=== PATIENT | male | born 2000 | race African-American/Black ===

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

== ENCOUNTER 2020-02-08 13:33 | Emergency (ER) | payer OTHER ==
--- NOTE | 2020-02-08 13:43 | PDOC ---
Rapid Medical Evaluation Time Seen by Provider: 02/08/20 13:40 Medical Evaluation: Allergies Allergy/AdvReac Type Severity Reaction Status Date / Time No Known Allergies Allergy Verified 08/05/19 03:58 02/08/20 13:40 I have preformed a brief in person evaluation of the patient HPI 19 year old male pmhx asthma complaining of rectal pain x 1 week with associated constipation. Pain is constant 6/10 No blood in stool PE: Deferred A/P: Likely anal fissure vs hemorrhoid Pt to precede to ED for further management and care
[2020-02-08 13:56] VITALS: BP 128/74; PULSE 98; TEMP 98.6; BMI 19.8
--- NOTE | 2020-02-08 14:20 | PDOC ---
History of Present Illness - General Chief Complaint: Pain Stated Complaint: BOWEL MOVEMENT Time Seen by Provider: 02/08/20 13:40 History Source: Patient Exam Limitations: Clinical Condition - History of Present Illness Initial Comments: 02/08/20 14:31 Patient with no significant past medical history present with complaint of one- week history of constipation and bump in the rectum when taking bowel movement which is painful. Patient report he feels when he goes to the bathroom he does not completely empty out. Last bowel movement was this morning which was small. Denies abdominal pain, nausea, vomiting, fever, chills. Denies rectal bleeds. Patient has not taken anything for symptoms. Denies any other symptoms Is this a multiple visit Asthma Patient?: No Timing/Duration: 1 week Past History - Medical History Allergies/Adverse Reactions: Allergies Allergy/AdvReac Type Severity Reaction Status Date / Time No Known Allergies Allergy Verified 08/05/19 03:58 Home Medications: Ambulatory Orders Docusate Sodium [Colace -] 100 mg PO BID #14 capsule 02/08/20 Hydrocortisone Acetate [Anusol Hc Suppository -] 25 mg RC BID PRN #28 supp.rect 02/08/20 Polyethylene Glycol 3350 [Miralax (For Bowel Prep) -] 17 gm PO DAILY #1 bottle 02/08/20 Asthma: Yes COPD: No - Immunization History Immunization Up to Date: Yes - Psycho-Social/Smoking History Smoking Status: No Smoking History: Never smoked Have you smoked in the past 12 months: No Number of Cigarettes Smoked Daily: 0 - Substance Abuse Hx (Audit-C & DAST Scrn) How often the patient has a drink containing alcohol: Never Score: In Men: 4 or > Positive; In Women: 3 or > Positive: 0 Screen Result (Pos requires Nsg. Audit-10AR): Negative In the last yr the pt used illegal drug/Rx for NonMed reason: No Score: Yes response is considered Positive: 0 Screen Result (Positive result requires Nsg. DAST-10): Negative Review of Systems - Review of Systems Able to Perform ROS?: Yes Is the patient limited Uzbek proficient: No Constitutional: No: Chills, Fever, Malaise HEENTM: No: Symptoms Reported, See HPI, Eye Pain, Blurred Vision, Tearing, Rece nt change in vision, Double Vision, Cataracts, Ear Pain, Ocular Prothesis, Ear Discharge, Nose Pain, Nose Congestion, Tinnitus, Nose Bleeding, Hearing Loss, Throat Pain, Throat Swelling, Mouth Pain, Dental Problems, Difficulty Swallowing, Mouth Swelling, Other Respiratory: No: Symptoms reported, See HPI, Cough, Orthopnea, Shortness of Breath, SOB with Exertion, SOB at Rest, Stridor, Wheezing, Productive cough, Hemoptysis, Other Cardiac (ROS): No: Symptoms Reported, See HPI, Chest Pain, Edema, Irregular Heart Rate, Lightheadedness, Palpitations, Syncope, Chest Tightness, Other ABD/GI: Yes: Abd. Pain w/ defecation, Constipated, Rectal Bleeding (hemorrhoid). No: Symptoms Reported, Abdominal Distended, Diarrhea, Nausea, Poor Appetite, Poor Fluid Intake, Vomiting, Indigestion, Abdominal cramping, Tarry Stools : No: Symptoms Reported All Other Systems: Reviewed and Negative *Physical Exam - Vital Signs Last Vital Signs Temp Pulse Resp BP Pulse Ox 98.6 F 98 H 19 128/74 97 02/08/20 13:40 02/08/20 13:40 02/08/20 13:40 02/08/20 13:40 02/08/20 13:40 - Physical Exam General Appearance: Yes: Nourished, Appropriately Dressed. No: Apparent Distress HEENT: positive: Normal ENT Inspection Respiratory/Chest: positive: Lungs Clear, Normal Breath Sounds. negative: Respiratory Distress, Accessory Muscle Use Cardiovascular: positive: Regular Rhythm, Regular Rate Gastrointestinal/Abdominal: positive: Flat, Soft, Decreased BS (mildly decrease bowel sounds diffusely). negative: Tender, Organomegaly, Guarding, Rebound, Tenderness Male Genitalia: positive: normal genitalia Rectal Exam: positive: heme negative stool, normal rectal tone, hemorrhoids (small 1cm internal non-thrombosed hemorrhoid) Musculoskeletal: positive: Normal Inspection Extremity: positive: Normal Capillary Refill, Normal Inspection, Normal Range of Motion Integumentary: positive: Normal Color Neurologic: positive: Fully Oriented, Alert, Normal Mood/Affect, Normal Response Medical Decision Making - Medical Decision Making 02/08/20 14:32 Patient with no significant past medical history present with complaint of one- week history of constipation and bump in the rectum when taking bowel movement which is painful. Patient report he feels when he goes to the bathroom he does not completely empty out. Last bowel movement was this morning which was small. Denies abdominal pain, nausea, vomiting, fever, chills. Denies rectal bleeds. Patient has not taken anything for symptoms. Denies any other symptoms Exam significant for 1 cm internal hemorrhoid. No rectal bleeding on rectal exam. No abdominal tenderness. Patient in no acute distress. Mildly decreased bowel sounds diffusely. No guarding or rebound. Patient symptoms likely constipation with hemorrhoids. Patient stable for discharge on Colace twice daily for constipation MiraLAX for constipation. Topical hydrocortisone Anusol prescribed for hemorrhoid rectal pain. Patient stable for discharge with GI follow-up. Patient advised to increase fiber intake to help decrease constipation and increase fluid intake. Patient stable for discharge Discharge - Discharge Information Problems reviewed: Yes Clinical Impression/Diagnosis: Constipation Qualifiers: Constipation type: unspecified constipation type Qualified Code(s): K59.00 - Constipation, unspecified Hemorrhoid Qualifiers: Hemorrhoid type: unspecified Qualified Code(s): K64.9 - Unspecified hemorrhoids Condition: Stable Disposition: HOME - Admission No - Additional Discharge Information Prescriptions: Hydrocortisone Acetate [Anusol Hc Suppository -] 25 mg RC BID PRN #28 supp.rect PRN Reason: hemorrhoid Docusate Sodium [Colace -] 100 mg PO BID #14 capsule Polyethylene Glycol 3350 [Miralax (For Bowel Prep) -] 17 gm PO DAILY #1 bottle - Follow up/Referral Referrals: Austin Smith MD [Staff Physician] - - Patient Discharge Instructions Patient Printed Discharge Instructions: Increased Dietary Fiber May Improve Constipation Conditions With Pelvic Sundar, DI for Constipation Additional Instructions: Your symptoms likely from constipation causing hemorrhoids. Take prescribed medication as prescribed for constipation and hemorrhoids. Follow-up with your GI doctor as soon as possible if symptoms persist for more than 5 days - Post Discharge Activity Work/Back to School Note: Back to Work
[2020-02-08] MEDS ORDERED: LACTULOSE 20 GM/30 ML UDC (FOR ORAL USE ONLY) PO ONE (14:21)
[2020-02-08] MEDS ORDERED: LACTULOSE 20 GM/30 ML UDC (FOR ORAL USE ONLY) ONE (14:23)
== END 2020-02-08 14:24 | disposition home or self-care (01) ==
LOC: JER 13:33
DX: K59.00 Constipation, unspecified (principal); K64.9 Unspecified hemorrhoids
CPT/HCPCS: 99283-25

== ENCOUNTER 2020-08-13 15:21 | Emergency (ER) | payer OTHER ==
[2020-08-13 15:36] VITALS: BP 133/74; PULSE 90; BMI 27.0
[2020-08-13] MEDS ORDERED: KETOROLAC TROMETHAMINE 30 MG/1 ML VIAL IM ONE (16:34)
[2020-08-13] MEDS ORDERED: KETOROLAC TROMETHAMINE 30 MG/1 ML VIAL ONE (16:59)
[2020-08-13 17:26] LABS: PH,URINE 7.5 (5.0-8.0); URINE APPEARANCE CLEAR; URINE BILIRUBIN NEGATIVE (NEGATIVE); URINE COLOR YELLOW; URINE GLUCOSE (UA) NEGATIVE (NEGATIVE); URINE KETONE NEGATIVE (NEGATIVE); URINE LEUK ESTERASE NEGATIVE (NEGATIVE); URINE NITRITE NEGATIVE (NEGATIVE); URINE PROTEIN NEGATIVE (NEGATIVE)
== END 2020-08-13 17:12 | disposition home or self-care (01) ==
LOC: JERFT 15:21
PROC: 3E0233Z Introduction of Anti-inflammatory into Muscle, Percutaneous Approach (ICD-10-PCS; principal; 2020-08-13)
DX: M25.511 Pain in right shoulder (principal)
CPT/HCPCS: 36415; 73030-TC-RT-FY; 81003; 87086; 87491; 87591; 99284-25

== ENCOUNTER 2021-03-10 16:55 | Emergency (ER) | payer OTHER ==
[2021-03-10 17:33] VITALS: BP 117/72; PULSE 91; TEMP 98.1; BMI 26.4
[2021-03-10] MEDS ORDERED: KETOROLAC TROMETHAMINE 15 MG/ML VIAL IM ONE (18:24)
[2021-03-10] MEDS ORDERED: KETOROLAC TROMETHAMINE 15 MG/ML VIAL ONE (18:51)
== END 2021-03-10 19:00 | disposition home or self-care (01) ==
LOC: JERFT 16:55 → JER 16:55 → JERFT 19:00
PROC: 3E0233Z Introduction of Anti-inflammatory into Muscle, Percutaneous Approach (ICD-10-PCS; principal; 2021-03-10)
DX: R07.0 Pain in throat (principal)
CPT/HCPCS: 87880; 96372; 99283-25

== ENCOUNTER 2021-06-17 10:25 | Emergency (ER) | payer OTHER ==
[2021-06-17 10:48] VITALS: BP 118/76; PULSE 85; TEMP 98.1; BMI 27.4
[2021-06-17] MEDS ORDERED: METHOCARBAMOL 500 MG TABLET PO ONE (11:39)
[2021-06-17] MEDS ORDERED: KETOROLAC TROMETHAMINE 30 MG/1 ML VIAL IM ONE (11:39)
[2021-06-17] MEDS ORDERED: METHOCARBAMOL 500 MG TABLET ONE (11:42)
[2021-06-17] MEDS ORDERED: KETOROLAC TROMETHAMINE 30 MG/1 ML VIAL ONE (11:42)
== END 2021-06-17 12:10 | disposition home or self-care (01) ==
LOC: JERFT 10:25
PROC: 3E0233Z Introduction of Anti-inflammatory into Muscle, Percutaneous Approach (ICD-10-PCS; principal; 2021-06-17)
DX: S13.4XXA Sprain of ligaments of cervical spine, initial encounter (principal); S33.5XXA Sprain of ligaments of lumbar spine, initial encounter; V49.50XA Passenger injured in collision with unspecified motor vehicles in traffic accident, initial encounter
CPT/HCPCS: 72050-TC-FY; 72100-TC-FY; 99284-25

== ENCOUNTER 2021-10-08 19:36 | Emergency (ER) | payer OTHER ==
[2021-10-08 19:50] VITALS: BP 112/70; PULSE 78; TEMP 98.7; BMI 28.8
== END 2021-10-08 21:50 | disposition home or self-care (01) ==
LOC: JER 19:36
DX: J02.9 Acute pharyngitis, unspecified (principal)
CPT/HCPCS: 71046-TC-FY; 87651; 99284-25

== ENCOUNTER 2021-12-16 10:08 | Emergency (ER) | payer OTHER ==
[2021-12-16 10:23] VITALS: BP 124/75; PULSE 81; TEMP 98; BMI 26.4
[2021-12-16] MEDS ORDERED: IBUPROFEN 600 MG TABLET (FP) PO ONE ×2 (11:13)
== END 2021-12-16 11:37 | disposition home or self-care (01) ==
LOC: JERFT 10:08
DX: M79.671 Pain in right foot (principal)
CPT/HCPCS: 73630-TC-RT-FY; 99283-25

== ENCOUNTER 2022-01-26 18:07 | Emergency (ER) | payer OTHER ==
[2022-01-26 18:26] VITALS: BP 129/72; PULSE 86; TEMP 98.8; BMI 27.4
== END 2022-01-26 19:37 | disposition home or self-care (01) ==
LOC: JER 18:07
DX: R51.9 Headache, unspecified (principal); J02.9 Acute pharyngitis, unspecified; R09.81 Nasal congestion
CPT/HCPCS: 0241U-QW; 99283-25

== ENCOUNTER 2022-02-21 19:48 | Emergency (ER) | payer OTHER ==
[2022-02-21 19:57] VITALS: BP 127/77; PULSE 57; RESP 19; TEMP 98.6; BMI 27.4
[2022-02-21] MEDS ORDERED: diazePAM 2 MG TABLET PO ONE (20:33)
[2022-02-21] MEDS ORDERED: KETOROLAC TROMETHAMINE 30 MG/1 ML VIAL IM ONE (20:33)
[2022-02-21] MEDS ORDERED: KETOROLAC TROMETHAMINE 30 MG/1 ML VIAL ONE (20:48)
[2022-02-21] MEDS ORDERED: diazePAM 2 MG TABLET ONE (20:48)
== END 2022-02-21 21:25 | disposition home or self-care (01) ==
LOC: JERFT 19:48
PROC: 3E0233Z Introduction of Anti-inflammatory into Muscle, Percutaneous Approach (ICD-10-PCS; principal; 2022-02-21)
DX: M54.2 Cervicalgia (principal)
CPT/HCPCS: 72050-TC-FY; 99284-25

== ENCOUNTER 2022-03-06 18:41 | Emergency (ER) | payer OTHER ==
[2022-03-06 18:47] VITALS: BP 128/70; PULSE 65; RESP 18; TEMP 97.8; BMI 26.4
[2022-03-06] MEDS ORDERED: LIDOCAINE 5% TOPICAL PATCH TP ONE (20:54)
[2022-03-06] MEDS ORDERED: diazePAM 5 MG TABLET PO ONE (20:54)
[2022-03-06] MEDS ORDERED: KETOROLAC TROMETHAMINE 30 MG/1 ML VIAL IM ONE (20:54)
[2022-03-06] MEDS ORDERED: LIDOCAINE 5% TOPICAL PATCH ONE (21:37)
[2022-03-06] MEDS ORDERED: diazePAM 5 MG TABLET ONE (21:37)
[2022-03-06] MEDS ORDERED: KETOROLAC TROMETHAMINE 30 MG/1 ML VIAL ONE (21:37)
[2022-03-06] MEDS ORDERED: oxyCODONE HCL 5 MG TABLET PO ONE (22:48)
[2022-03-06] MEDS ORDERED: oxyCODONE HCL 5 MG TABLET ONE (23:30)
== END 2022-03-07 00:26 | disposition home or self-care (01) ==
LOC: JER 18:41
PROC: 3E023GC Introduction of Other Therapeutic Substance into Muscle, Percutaneous Approach (ICD-10-PCS; principal; 2022-03-06)
DX: M54.2 Cervicalgia (principal)
CPT/HCPCS: 72125-TC; 99284-25

== ENCOUNTER 2022-04-18 16:27 | Emergency (ER) | payer OTHER ==
[2022-04-18 16:50] VITALS: BP 143/83; PULSE 89; RESP 18; TEMP 98; BMI 27.4
[2022-04-18] MEDS ORDERED: METHOCARBAMOL 500 MG TABLET PO ONE (17:12)
[2022-04-18] MEDS ORDERED: METHOCARBAMOL 500 MG TABLET ONE (17:15)
[2022-04-18] MEDS ORDERED: oxyCODONE HCL 5 MG TABLET PO ONE (17:49)
[2022-04-18] MEDS ORDERED: oxyCODONE HCL 5 MG TABLET ONE (17:54)
== END 2022-04-18 17:45 | disposition home or self-care (01) ==
LOC: JER 16:27 → JERFT 16:27
DX: S16.1XXA Strain of muscle, fascia and tendon at neck level, initial encounter (principal); X50.0XXA Overexertion from strenuous movement or load, initial encounter
CPT/HCPCS: 99283-25

== ENCOUNTER 2023-01-10 01:51 | Emergency (ER) | payer OTHER ==
[2023-01-10 02:02] VITALS: BP 155/75; PULSE 84; RESP 18; TEMP 98.1; BMI 27.4
[2023-01-10] MEDS ORDERED: ACETAMINOPHEN 500 MG TABLET (FP) PO ONE (03:40)
[2023-01-10] MEDS ORDERED: LIDOCAINE 5% TOPICAL PATCH TP ONE (03:40)
[2023-01-10] MEDS ORDERED: KETOROLAC TROMETHAMINE 30 MG/1 ML VIAL IM ONE (03:40)
[2023-01-10] MEDS ORDERED: ACETAMINOPHEN 325 MG TABLET (FP) ONE (03:59)
[2023-01-10] MEDS ORDERED: LIDOCAINE 5% TOPICAL PATCH ONE (04:00)
[2023-01-10] MEDS ORDERED: KETOROLAC TROMETHAMINE 30 MG/1 ML VIAL ONE (04:01)
[2023-01-10] MEDS ORDERED: METHOCARBAMOL 750 MG TAB PO ONE (05:09)
[2023-01-10] MEDS ORDERED: METHOCARBAMOL 500 MG TABLET ONE (05:11)
[2023-01-10] MEDS ORDERED: METHOCARBAMOL 500 MG TABLET PO ONE (05:12)
[2023-01-10] MEDS ORDERED: LIDOCAINE PATCH REMOVAL MC ONE (16:00)
== END 2023-01-10 05:35 | disposition home or self-care (01) ==
LOC: JER 01:51
PROC: 3E0233Z Introduction of Anti-inflammatory into Muscle, Percutaneous Approach (ICD-10-PCS; principal; 2023-01-10)
DX: M62.830 Muscle spasm of back (principal); M54.50 Low back pain, unspecified
CPT/HCPCS: 96372; 99284-25

== ENCOUNTER 2023-06-04 23:07 | Emergency (ER) | payer OTHER ==
[2023-06-04 23:12] VITALS: BP 123/70; PULSE 66; RESP 20; TEMP 98.3; BMI 27.4
[2023-06-05] MEDS ORDERED: IBUPROFEN 600 MG TABLET (FP) PO ONE ×2 (00:09→00:17)
[2023-06-05] MEDS ORDERED: LIDOCAINE 5% TOPICAL PATCH TP ONE (01:07)
[2023-06-05] MEDS ORDERED: ACETAMINOPHEN 500 MG TABLET (FP) PO ONE (01:07)
[2023-06-05] MEDS ORDERED: ACETAMINOPHEN 500 MG TABLET (FP) ONE (01:10)
[2023-06-05] MEDS ORDERED: LIDOCAINE 4% PATCH TP ONE (01:11)
[2023-06-05] MEDS ORDERED: diazePAM 5 MG TABLET PO ONE (02:02)
[2023-06-05] MEDS ORDERED: diazePAM 5 MG TABLET ONE (02:04)
[2023-06-05] MEDS ORDERED: LIDOCAINE PATCH REMOVAL MC ONE (14:00)
== END 2023-06-05 01:54 | disposition home or self-care (01) ==
LOC: JER 23:07
DX: M25.511 Pain in right shoulder (principal); M75.101 Unspecified rotator cuff tear or rupture of right shoulder, not specified as traumatic
CPT/HCPCS: 73030-TC-RT-FY; 99283-25

== ENCOUNTER 2023-06-14 22:33 | Emergency (ER) | payer OTHER ==
[2023-06-14 22:55] VITALS: BP 138/67; PULSE 74; RESP 18; TEMP 97.8; BMI 27.4
[2023-06-14] MEDS ORDERED: predniSONE 20 MG TABLET (UD) PO ONE (23:59)
[2023-06-14] MEDS ORDERED: LIDOCAINE 4% PATCH TP ONE (23:59)
[2023-06-15] MEDS ORDERED: predniSONE 20 MG TABLET (UD) ONE (00:03)
[2023-06-15] MEDS ORDERED: LIDOCAINE 4% PATCH TP ONE (00:06)
[2023-06-15] MEDS ORDERED: LIDOCAINE PATCH REMOVAL MC ONE (12:00)
[2023-06-15] MEDS ORDERED: LIDOCAINE PATCH REMOVAL MC SCH (22:00)
== END 2023-06-15 00:10 | disposition home or self-care (01) ==
LOC: JER 22:33 → JERFT 22:33
DX: M25.511 Pain in right shoulder (principal)
CPT/HCPCS: 99283-25

== ENCOUNTER 2023-08-21 00:53 | Emergency (ER) | payer OTHER ==
[2023-08-21 01:02] VITALS: BP 119/78; PULSE 76; RESP 18; TEMP 98.5; BMI 27.4
[2023-08-21] MEDS ORDERED: KETOROLAC TROMETHAMINE 30 MG/1 ML VIAL ONE (01:56)
[2023-08-21] MEDS ORDERED: LIDOCAINE 4% PATCH TP ONE (01:56)
[2023-08-21] MEDS: LIDOCAINE 5% TOPICAL PATCH TP ONE (02:09)
[2023-08-21] MEDS: KETOROLAC TROMETHAMINE 30 MG/1 ML VIAL IM ONE (02:09)
[2023-08-21] MEDS ORDERED: LIDOCAINE PATCH REMOVAL MC SCH (22:00)
== END 2023-08-21 04:16 | disposition home or self-care (01) ==
LOC: JER 00:53
PROC: 3E0233Z Introduction of Anti-inflammatory into Muscle, Percutaneous Approach (ICD-10-PCS; principal; 2023-08-21)
DX: M25.562 Pain in left knee (principal); R26.2 Difficulty in walking, not elsewhere classified
CPT/HCPCS: 73562-TC-LT-FY; 99284-25

== ENCOUNTER 2023-12-03 21:20 | Emergency (ER) | payer OTHER ==
[2023-12-03 21:31] VITALS: BP 118/66; PULSE 84; RESP 18; TEMP 98.5; BMI 27.4
[2023-12-03] MEDS ORDERED: KETOROLAC TROMETHAMINE 30 MG/1 ML VIAL ONE (22:05)
[2023-12-03] MEDS ORDERED: LIDOCAINE 5% TOPICAL PATCH ONE (22:05)
[2023-12-03] MEDS ORDERED: METHOCARBAMOL 500 MG TABLET ONE (22:07)
[2023-12-03] MEDS: LIDOCAINE 5% TOPICAL PATCH TP ONE (22:15)
[2023-12-03] MEDS: METHOCARBAMOL 750 MG TABLET PO ONE (22:15)
[2023-12-03] MEDS: KETOROLAC TROMETHAMINE 30 MG/1 ML VIAL IM ONE (22:15)
[2023-12-04] MEDS ORDERED: LIDOCAINE PATCH REMOVAL MC SCH (10:00)
== END 2023-12-03 23:09 | disposition home or self-care (01) ==
LOC: JERFT 21:20
PROC: 3E0233Z Introduction of Anti-inflammatory into Muscle, Percutaneous Approach (ICD-10-PCS; principal; 2023-12-03)
DX: M54.50 Low back pain, unspecified (principal)
CPT/HCPCS: 72100-TC-FY; 99284-25

== ENCOUNTER 2024-04-09 13:02 | Emergency (ER) | payer OTHER ==
[2024-04-09 13:13] VITALS: TEMP 98.6; BMI 28.5
[2024-04-09] MEDS ORDERED: ONDANSETRON 4 MG/2 ML VIAL ONE (15:20)
[2024-04-09] MEDS ORDERED: ACETAMINOPHEN INJECTION 100 ML ONE (15:20)
[2024-04-09] MEDS ORDERED: FAMOTIDINE 20 MG/50 ML IVPB 20 MG/50 ML MG IVPB ONE (15:20)
[2024-04-09] MEDS: FAMOTIDINE 20 MG/50 ML IVPB 20 MG/50 ML MG IVPB ONE (15:44)
[2024-04-09] MEDS: ONDANSETRON 4 MG/2 ML VIAL IVPUSH ONE (15:44)
[2024-04-09] MEDS: SODIUM CHLORIDE 0.9% 1000 ML INFUS.BAG IV ONE (15:44)
[2024-04-09] MEDS: ACETAMINOPHEN 1000 MG/100 ML BAG IVPB ONE (15:44)
[2024-04-09 15:50] LABS: BASO % 0.7 % (0-2.0); EOS % 2.4 % (0-4.5); HEMATOCRIT 43.8 % (35.4-49); HEMOGLOBIN 14.5 GM/dL (11.7-16.9); LYMPH % 28.5 % (8-40); MCHC 33.1 g/dl (32.0-35.9); MEAN CELL VOLUME 93.5 fl (80-96); MEAN PLT VOLUME 10.8 fl (7.5-11.1); MONO % 10.1 % (3.8-10.2); NEUT % 58.3 % (42.8-82.8); PLATELET COUNT 145 10^3/uL (134-434); RBC 4.68 M/mm3 (4.00-5.60); WHITE BLOOD COUNT 4.7 K/mm3 (4.0-10.0)
[2024-04-09 16:08] LABS: POTASSIUM 4.3 mmol/L (3.5-5.1)
[2024-04-09 16:10] LABS: ALBUMIN 4.2 g/dl (3.4-5.0); BLOOD UREA NITROGEN 12.1 mg/dL (7-18); CALCIUM 9.1 mg/dL (8.5-10.1)
[2024-04-09 16:13] LABS: CREATININE 1.3 mg/dL (0.55-1.3)
[2024-04-09 16:15] LABS: TOT PROT 7.4 g/dl (6.4-8.2)
[2024-04-09 17:02] LABS: THROAT:GRP A STREP NOT DETECTED (NOTDETECTED)
[2024-04-09 17:35] LABS: HIV INTERPRETATION NEGATIVE (NEGATIVE)
[2024-04-09 18:52] VITALS: BP 136/84; PULSE 74; RESP 16
== END 2024-04-09 18:52 | disposition home or self-care (01) ==
LOC: JER 13:02
DX: K52.9 Noninfective gastroenteritis and colitis, unspecified (principal); R50.9 Fever, unspecified; M79.10 Myalgia, unspecified site; R09.89 Other specified symptoms and signs involving the circulatory and respiratory systems; R11.10 Vomiting, unspecified; R10.13 Epigastric pain; R10.32 Left lower quadrant pain
CPT/HCPCS: 0241U-QW; 36415; 74177-TC; 80053; 83690; 85025; 86803; 87389; 87651; 99285-25; J0131; Q9967